=== PATIENT | male | born 1955 | race Caucasian/White ===

== ENCOUNTER 2024-02-26 06:07 | Emergency (ER) | payer OTHER ==
[~2024-02-26] VITALS: Ht 167.6 cm; Wt 96.7 kg
[2024-02-26 06:13] VITALS: BP 173/82; PULSE 94; RESP 16; TEMP 98.1; O2SAT 95; O2SAT 97
[2024-02-26 07:06] LABS: CLARITY URINE CLEAR (CLEAR); COLOR URINE YELLOW (YELLOW); GLUCOSE URINE NEGATIVE (NEGATIVE); KETONES URINE NEGATIVE (NEGATIVE); LEUKOCYTE ESTERASE URINE TRACE (NEGATIVE); NITRITE URINE NEGATIVE (NEGATIVE); OCCULT BLOOD URINE 1+ (NEGATIVE); PROTEIN URINE 2+ (NEGATIVE); UROBILINOGEN URINE 0.2 E.U./dL (0.2-1.0)
[2024-02-26 08:09] LABS: RBC URINE 0-2 /hpf (0-2); SQUAMOUS EPITHELIAL CELL URINE RARE /lpf (RARE/1+); WBC URINE 0-2 /hpf (0-2)
[2024-02-26 08:10] LABS: BACTERIA URINE FEW; YEAST URINE NONE SEEN
[2024-02-26] MEDS ORDERED: SIME125C MT (09:30)
[2024-02-26] MEDS ORDERED: TAMS-11 MT (10:01)
== END 2024-02-26 09:45 | disposition home or self-care (01) ==
LOC: EDBD 06:07 → ER 06:07
DX: N28.1 Cyst of kidney, acquired (principal); N40.1 Benign prostatic hyperplasia with lower urinary tract symptoms; I10 Essential (primary) hypertension
CPT/HCPCS: 51701; 76770; 81003; 99284